=== PATIENT | female | born 1985 | race Caucasian/White ===

== ENCOUNTER 2023-11-16 14:08 | Emergency (ER) | payer OTHER, SELFPAY ==
[2023-11-16 14:17] VITALS: BP 111/86; PULSE 107; RESP 16; TEMP 37.3; O2SAT 98
--- NOTE | 2023-11-16 14:20 | ED.GENADULT ---
HPI - General Adult General Chief complaint: Upper Respiratory Infection Stated complaint: Sinus Infection Symptoms Source: patient, RN notes reviewed and old records reviewed Mode of arrival: ambulatory Limitations: no limitations History of Present Illness HPI narrative: 37-year-old female presents to [facility] with complaints of sinus congestion, sinus pressure, sinus pain, cough, postnasal drip this started 10-12 days ago. Patient taking [id number] medications with no relief. Patient denies chest pain, shortness of breath, weakness, dizziness. Related Data Home Medications Medication Instructions Recorded Confirmed multivit-iron 18 mg-folic acid 400 1 tablet PO DAILY 11/16/23 11/16/23 mcg-calcium 500 mg-minerals tablet (Daily Multiple For Women) Allergies Allergy/AdvReac Type Severity Reaction Status Date / Time No Known Allergies Allergy Verified 11/16/23 14:17 Review of Systems Constitutional: Constitutional: Reports no additional constitutional complaints, Denies body ache(s), Denies chills, Denies fatigue, Denies fever(s) and Reports headache(s) Eyes: Eyes: Reports no additional eye complaints and Denies blurry vision ENT: Reports system reviewed and no additional complaints, except as documented, Denies vertigo, Denies dizziness, Denies ear discharge, Denies otalgia, Denies facial pain, Denies headache(s), Reports nasal congestion, Denies nasal discharge, Reports post nasal drip, Reports sinus pain, Reports sinus pressure and Denies sore throat Cardiovascular: Cardiovascular: Reports no additional cardiovascular complaints, Denies chest pain, Denies chest pain at rest, Denies rapid heart rate and Denies dyspnea Respiratory: Respiratory: Reports no additional respiratory complaints, Reports chest congestion, Reports cough, Denies pain on inspiration, Denies pain with cough and Denies dyspnea Gastrointestinal: Gastrointestinal: Denies abdominal pain, Denies diarrhea, Denies nausea and Denies vomiting Integumentary/Breasts: Skin/Breast: Denies rash Neurologic: Reports system reviewed and no additional complaints, except as documented, Denies vertigo, Denies dizziness and Denies headache(s) Endocrine: Endocrine: Denies fatigue PMF Surgical History Surgical History History of laparoscopic cholecystectomy History of tonsillectomy and adenoidectomy Hx of section Hx of hysterectomy Family History Family History Father Asthma Sibling Asthma Other Family history of malignant neoplasm Social History Social History Smoking status: Never smoker Alcohol intake: current Comments At the time of my signature, I reviewed and agree with the nursing past medical, surgical, social, and family history. There is no relevant family history pertinent to the patient complaint. Exam Const: General: cooperative, healthy appearing, no acute distress and well nourished Nutritional Appearance: well nourished Orientation/consciousness: patient oriented x3 Limitations: no limitations HENMT: Head: normal to inspection and normocephalic Ears: external ears normal, TM's normal bilaterally, EAC's normal and mastoids normal Face/Nose/Sinus: Abnormal mucous membranes and turbinates present boggy and erythematous, normal facial exam and sinus tenderness Face and sinus: normal facial exam and Facial tenderness on exam of face and sinuses Mouth: Yes Normal oral and palatal mucosa present, Yes oropharynx normal and Yes moist mucous membranes Throat: tonsils normal, uvula midline, normal tonsils, no peritonsillar masses, posterior oropharynx abnormal erythema, postnasal drainage and no uvular edema Eyes: General: appearance normal, both eyes and all related structures Sclera: sclerae normal Pupils: Equal, round and reactive pupils p
== END 2023-11-16 14:31 | disposition home or self-care (01) ==
PROVIDERS: Emergency Provider Registered Nurse; PCP Physician Assistant
DX: J01.90 Acute sinusitis, unspecified (principal)
CPT/HCPCS: 99213; G0463

== ENCOUNTER 2024-02-17 08:34 | Outpatient (CLI) | payer OTHER, SELFPAY ==
--- NOTE | ~2024-02-17 | MM_ITS ---
EXAMINATION: MM screening shorty BI w nhan HISTORY: Screening mammogram TECHNIQUE: Craniocaudal and mediolateral oblique 3-D tomosynthesis images were obtained and synthetic 2-D images were generated. CAD analysis was submitted and interpreted. COMPARISON: No prior mammogram is available for comparison at this institution. BREAST PARENCHYMAL COMPOSITION:Dense: The breasts are heterogeneously dense, which may obscure small masses. FINDINGS: There is a 1.3 cm inner right subareolar mass. There are several small nodular asymmetries at the posterior upper, inner left breast. No suspicious microcalcifications seen in either breast. IMPRESSION: 1.3 cm inner right subareolar breast mass. Small nodular asymmetries in the posterior, upper, inner left breast. These lesions are indeterminate. Spot compression views and ultrasound recommended for f urther evaluation. BI-RADS Category 0: Incomplete: Needs additional imaging evaluation. Reviewed, dictated and finalized at location . IMPRESSION: 1.3 cm inner right subareolar breast mass. Small nodular asymmetries in the po sterior, upper, inner left breast. These lesions are indeterminate. Spot compre ssion views and ultrasound recommended for further evaluation. BI-RADS Category 0: Incomplete: Needs additional imaging evaluation.
== END 2024-02-17 08:35 ==
PROVIDERS: PCP Physician Assistant; Visit Provider Internal Medicine Endocrinology, Diabetes & Metabolism
DX: Z12.31 Encounter for screening mammogram for malignant neoplasm of breast (principal); R92.8 Other abnormal and inconclusive findings on diagnostic imaging of breast
CPT/HCPCS: 77063; 77067

== ENCOUNTER 2024-03-22 09:12 | Outpatient (CLI) | payer OTHER, SELFPAY ==
--- NOTE | ~2024-03-22 | MMUS_ITS ---
EXAMINATION: MM diagnostic shorty BI w nhan, US breast BI complete HISTORY: Follow-up right breast mass and bilateral breast asymmetries TECHNIQUE: Additional 3-D tomosynthesis images of the breasts were performed and synthetic 2-D images were generated. CAD analysis was submitted and interpreted. High resolution complete bilateral breas t ultrasound was performed. COMPARISON: 01/28/2024 BREAST PARENCHYMAL COMPOSITION: Dense: The breasts are heterogeneously dense, which may obscure small masses FINDINGS: MAMMOGRAPHIC FINDINGS: There is a persistent right periareolar mass measuring approximately 1.3 cm by mammography. There are persistent bilateral breast asymmetries, although no discrete mass identified in the areas of palpab le concern. There are no suspicious calcifications. ULTRASOUND: Complete bilateral US of all 4 quadrants of the breasts and retroareolar region was reviewed. Right breast: At 2:00, 1 cm from the nipple there is a 1.2 cm slightly irregular shaped mass with int ernal vascularity and no significant posterior features. Left breast: At 2:00, 4 cm from the nipple there is a hypoechoic parallel oriented 1 cm mass with int ernal septations and low-level internal echoes. No significant posterior features or internal vascula rity, likely benign. At 7:00, 5 cm from the nipple, there is a complicated cyst measuring 5 mm, likel y benign. At 7:00, 5 cm from the nipple there is a second complicated cyst measuring 6 mm, likely [place] ign. At 11:00, 4 cm from the nipple, there is a 9 mm cyst. IMPRESSION: 1. Irregular shaped hypoechoic 0.2 cm right breast mass at 2:00, 1 cm from the nipple. Ultrasound-willie ded right breast biopsy recommended. 2. Probable benign complicated cyst of the left breast. 6 month follow-up Limited left breast ultraso und recommended. BI-RADS category 4, suspicious findings. Reviewed, dictated and finalized at location B. IMPRESSION: 1. Irregular shaped hypoechoic 0.2 cm right breast mass at 2:00, 1 cm from the nipple. Ultrasound-guided right breast biopsy recommended. 2. Probable benign complicated cyst of the left breast. 6 month follow-up Limit ed left breast ultrasound recommended. BI-RADS category 4, suspicious findings.
== END 2024-03-22 09:13 ==
PROVIDERS: PCP Physician Assistant; Visit Provider Physician Assistant
DX: R92.8 Other abnormal and inconclusive findings on diagnostic imaging of breast (principal)
CPT/HCPCS: 76641; 77062; 77066; G0279

== ENCOUNTER 2024-06-28 08:44 | Emergency (ER) | payer OTHER, SELFPAY ==
[2024-06-28 09:07] VITALS: BP 113/84; PULSE 84; RESP 16; TEMP 36.6; O2SAT 100
--- NOTE | 2024-06-28 10:03 | ED.GENADULT ---
HPI - General Adult General Chief complaint: Upper Respiratory Infection Stated complaint: Sinus Infection Symptoms Source: patient Mode of arrival: ambulatory Limitations: no limitations History of Present Illness HPI narrative: patient presents for evaluation of sinus symptoms for last 2 weeks. symptoms include sinus congestion and thick green drainage from the nares. No fever, chills, nausea, vomiting, sore throat, diarrhea, shortness of breath or cough. She has had similar symptoms in the past with sinusitis. Augmentin is usually not helpful. Other antibiotics and methylprednisone have been effective. She has tried Zyrtec and Flonase for symptoms without considerable improvement thereafter. Related Data Home Medications Medication Instructions Recorded Confirmed multivit-iron 18 mg-folic acid 400 1 tablet PO DAILY 11/16/23 11/16/23 mcg-calcium 500 mg-minerals tablet (Daily Multiple For Women) progesterone micronized 100 mg mg 06/28/24 capsule Allergies Allergy/AdvReac Type Severity Reaction Status Date / Time No Known Allergies Allergy Verified 11/16/23 14:17 Review of Systems Review of Systems: CONSTITUTIONAL: Denies fever, chills, or sweats. EYES: Denies visual changes, redness, or discharge. ENT: Reports sinus congestion and thick green drainage from the nares. Denies otalgia. CARDIOVASCULAR: Denies chest pain, palpitations, or edema. RESPIRATORY: Denies cough or dyspnea. GASTROINTESTINAL: Denies abdominal pain, nausea, vomiting, or diarrhea. GENITOURINARY: Denies dysuria or hematuria. SKIN: Denies rash or itching. MUSCULOSKELETAL: Denies back pain, joint pain, or myalgia. NEUROLOGIC: Denies headache, numbness, dizziness, or weakness. PSYCHIATRIC: Denies anxiety or depression. [facility] Past Medical History Medical History History of sinusitis Surgical History Surgical History History of laparoscopic cholecystectomy History of tonsillectomy and adenoidectomy Hx of section Hx of hysterectomy Family History Family History Father Asthma Sibling Asthma Other Family history of malignant neoplasm Social History Social History Smoking status: Never smoker Alcohol intake: current Additional occupation/education comments: teacher Gender identity (if verbalized by the patient): Female Spiritual care concerns: No Exam Narrative: GENERAL: Well-appearing, well-nourished, and in no acute distress. HEAD: Normocephalic, atraumatic. EYES: PERRLA and EOMI. ENT: thick green drainage in the nares. Mucous membranes moist. Oropharynx without tonsillar hypertrophy exudate or other lesions. Bilateral TMs pearly barba nonbulging NECK: Supple. No adenopathy or masses. No carotid bruits or JVD CHEST: Clear to auscultation. No respiratory distress. No wheezes rales or rhonchi HEART: Regular rate and rhythm. No murmur heard. Normal peripheral pulses. ABDOMEN: Soft, nontender, nondistended, normal active bowel sounds. EXTREMITIES: Normal range of motion. No edema. SKIN: Warm, dry, no rash. NEURO: No focal deficits. Alert and oriented x3. PSYCH: Normal mood and affect. Course Course Emergency Course: This is a 38 year female who presented for evaluation of sinus symptoms. She meets criteria for bacterial sinusitis based upon duration of time in which she has been symptomatic and nature of discharge. Augmentin has not helped in the past. Will discharge with doxycycline and Medrol Dosepak. Increase hydration. [id number] agents for symptom management. Follow up with primary provider. Go to the ER for worsening symptoms. Patient in agreement with plan of care. Level of Care: Express Care Visit Vital Signs Vital signs: Vital Signs Temperature 36.6 C 06/28/24 09:07 Pulse Rate 84 06/28/24 09:07 Respiratory Rate 16 06/28/24 09:07 Blood Pressure 113/84 06/28/24 09:07 Pulse Oximetry 100 06/28/24 09:07 Temperature 36.6 C 06/28/24 09:07 Pulse Rate 84 06/28/24 09:07 Respiratory Rate 16 06/28/24 09:07 Blood Pressure 113/84 06/28/24 09:07 Pulse Oximetry 100 06/28/24 09:07 Medical Decision Making Vital Signs Vital Signs: Vital Signs Temperature 36.6 C 06/28/24 09:07 Pulse Rate 84 06/28/24 09:07 Respiratory Rate 16 06/28/24 09:07 Blood Pressure 113/84 06/28/24 09:07 Pulse Oximetry 100 06/28/24 09:07 Temperature 36.6 C 06/28/24 09:07 Pulse Rate 84 06/28/24 09:07 Respiratory Rate 16 06/28/24 09:07 Blood Pressure 113/84 06/28/24 09:07 Pulse Oximetry 100 06/28/24 09:07 Discharge Plan Discharge Clinical Impression: Sinusitis Patient Disposition: Home, Self-Care Condition: Stable Instructions: Antibiotic Form, Sinusitis (ED) Patient Language: Gabonese Prescriptions: New methylprednisolone [Medrol (Fuad)] 4 mg tablets,dose pack See Rx Instructions .ROUTE .COMPLEX Qty: 21 0RF Rx Instructions: for 6 days doxycycline hyclate 100 mg capsule 100 mg PO BID Qty: 20 0RF No Action Daily Multiple For Women 18 mg iron-400 mcg-500 mg Ca Tablet 1 tablet PO DAILY doxycycline hyclate 100 mg tablet 100 mg PO Q12H 10 Days Qty: 20 0RF prednisone 20 mg tablet 20 mg PO BID 5 Days Qty: 10 0RF progesterone micronized 100 mg capsule Follow-up/Referrals: Tai,ROYAL Boyle [Primary Care Provider] - Stand Alone Forms: Work/School Release IP Time of Disposition: 09:53
== END 2024-06-28 10:03 | disposition home or self-care (01) ==
PROVIDERS: Emergency Provider Nurse Practitioner; PCP Physician Assistant
DX: J32.9 Chronic sinusitis, unspecified (principal)
CPT/HCPCS: 99213; G0463